=== PATIENT | female | born 1960 | race Caucasian/White ===

== ENCOUNTER 2018-12-29 07:00 | Emergency (ER) | payer OTHER, SELFPAY ==
[2018-12-29 07:10] VITALS: BP 141/77; PULSE 68; RESP 18; TEMP 36.6; O2SAT 100; BMI 22.8
--- NOTE | 2018-12-29 07:13 | DI.RAD.S_ITS ---
PROCEDURE: XR WRIST LT MIN 3V INDICATIONS: fall yesterday on [place], gen wrist pain with movement TECHNIQUE: 4 views of the wrist were acquired. COMPARISON: [facility], , WRIST MINIMUM 3 VIEWS LEFT, 05/03/2015, 11:32. FINDINGS: Bones: There is a corticated ossicle in the dorsal aspect of the distal left wrist, unchanged from 05/03/2015, most likely an accessory ossicle. No fractures or dislocations. No suspicious bony lesions. Scaphoid view: Scaphoid appears intact. Soft tissues: No suspicious soft tissue calcifications. IMPRESSION: No fracture or dislocation. Dictated by: Klever Gil M.D. on 12/29/2018 at 9:26 Approved by: Klever Gil M.D. on 12/29/2018 at 9:30
--- NOTE | 2018-12-29 07:13 | DI.RAD.S_ITS ---
PROCEDURE: XR WRIST RT MIN 3V INDICATIONS[place] wrist pain radial region TECHNIQUE: 4 views of the wrist were acquired. COMPARISON: none. FINDINGS: Bones: No fractures or dislocations. No suspicious bony lesions. Scaphoid view: Scaphoid is intact. Soft tissues: No suspicious soft tissue calcifications. IMPRESSION: No fracture or dislocation. Dictated by: Klever Gli M.D. on 12/29/2018 at 9:24 Approved by: Klever Gil M.D. on 12/29/2018 at 9:26
--- NOTE | 2018-12-29 07:13 | ED.UPPEXIN ---
HPI - Extremity Injury (Upper) General Chief Complaint: Extremity Injury, Upper Stated Complaint: fell at work and sprained both wrists Time Seen by Provider: 12/29/18 07:13 Source: patient Mode of arrival: ambulatory Limitations: no limitations History of Present Illness HPI narrative: This is a 58-year-old female comes to the emergency department with complaint of bilateral wrist pain patient states she was working on the [employer] when she was stepping off the lip and caught her foot. Patient states she fell forward and caught herself with both wrists. She has pain in both wrists. Little bit more on the right compared to the left she has pain with movement. No numbness, no tingling or weakness she denies any other injuries. She does not any cuts or abrasions. Past medical history is only significant for multiple sclerosis which she takes a beta globulin. She has had a tubal but no other surgeries. Dr. Amanda Campbell is her primary care Related Data Previous Rx's Medication Instructions Recorded ondansetron [Zofran ODT] 4 mg SUBLINGUAL Q6HP PRN #20 odt 10/22/17 oxycodone 5 mg PO Q3HP PRN #20 tab 10/22/17 Allergies Allergy/AdvReac Type Severity Reaction Status Date / Time morphine [MORPHINE] Allergy Mild VOMITING, Unverified 01/07/18 12:03 HIVES Review of Systems Review of Systems ROS Unobtainable: All systems reviewed & are unremarkable except as noted in HPI and below Constitutional Denies weakness Musculoskeletal Reports arthralgias (bilateral wrist), Reports joint swelling (very mild), Reports limited range of motion (partially decreased), Denies numbness, Reports stiffness and Denies tingling Integumentary/Breasts Denies unusual bruising and Denies wounds Neurologic Denies focal weakness, Denies numbness, Denies sensory deficit, Denies tingling and Denies weakness PFSH Medical History (Updated 12/29/18 @ 07:20 by Ameena Gale DO) Multiple sclerosis (Chronic) Surgical History (Updated 12/29/18 @ 07:17 by Ameena Gale DO) H/O tubal ligation (Chronic) Family History (Updated 11/21/14 @ 00:00 by Conversion Provider) Father Age: 79 Diabetes mellitus Sister Age: 49 Breast cancer Social History (Updated 12/29/18 @ 07:17 by Ameena Gale DO) occupational status: employed Previous occupational history: Works on [employer] Smoking Status: Never smoker Family History (Updated 11/21/14 @ 00:00 by Conversion Provider) Father Age: 79 Diabetes mellitus Sister Age: 49 Breast cancer Social History (Updated 12/29/18 @ 07:17 by Ameena Gale DO) occupational status: employed Previous occupational history: Works on [employer] Smoking Status: Never smoker Exam Narrative Exam Narrative: GENERAL: Alert and oriented x three, well-nourished, well-appearing female in no acute distress. HEENT: Head normocephalic, atraumatic, EOMI, pupils reactive, face symmetric, moist mucous membranes NECK: Supple, full range of motion CARDIOVASCULAR: Regular rate and rhythm without murmurs, rubs or gallops. RESPIRATORY: Breath sounds equal bilaterally, no wheezes rales or rhonchi. ABDOMEN: Soft, nontender. Normoactive bowel sounds all 4 quadrants. No guarding or rebound, rigidity, no mass EXTREMITIES: Normal range of motion except for mildly decreased at the wrist. Patient does still have full range of motion she has just a little bit more careful. In the right wrist patient has some tenderness over the distal radius and ulna. Some mild swelling. Patient does not have any bony tenderness to the hand or fingers. She has normal sensation throughout. Cap refill less than 2 seconds in all 5 fingers. 2+ radial pulse. In the left wrist patient has some mild generalized tenderness of the wrist but no acute bony tenderness. Patient has no tenderness of the hand or fingers. She has full range of motion, cap refills less than 2 seconds with 2+ radial pulse. 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 Full range of motion of her upper extremities. no abrasions or wounds noted. no clubbing or edema. Neurovascularly intact NEUROLOGICAL: Cranial nerves II through XII grossly intact. Moving all extremities SKIN: Warm, dry, no petechiae, no rashes or lesions. Initial Vital Signs Initial Vital Signs: Vital Signs Temperature 97.8 F 12/29/18 07:10 Pulse Rate 68 12/29/18 07:10 Respiratory Rate 18 12/29/18 07:10 Blood Pressure 141/77 H 12/29/18 07:10 Pulse Oximetry 100 12/29/18 07:10 Course Orders Ordered: ED Orders 12/29/18 07:13 XR wrist LT min 3V Stat XR wrist RT min 3V Stat Vital Signs - 8 hr 12/29/18 07:10 Temperature 97.8 F Pulse Rate 68 Respiratory Rate 18 Blood Pressure 141/77 H Pulse Oximetry 100 [facility] - Extremity Injury (Upper) Imaging Data Right wrist x-ray: Attestation: I personally reviewed and interpreted this imaging study as follows: My impression: no fracture or dislocation noted Left wrist x-ray: Attestation: I personally reviewed and interpreted this imaging study as follows: My impression: no fracture/dislocation noted. [facility] Narrative Medical decision making narrative: Followed up for no radial Arnoldo reports. Both were negative for fracture dislocation. Discharge Plan Departure Patient Disposition: Home Clinical Impression: Wrist sprain Qualifiers: Encounter type: initial encounter Laterality: unspecified laterality Qualified Code(s): S63.509A - Unspecified sprain of unspecified wrist, initial encounter Discharge Date/Time: 12/29/18 07:52 Interventions: ED Discharge Assessment Last Done: 12/29/18 07:52 Instructions: DI for Wrist Sprain Activity Restrictions/Additional Instructions: Follow-up with L&I physician in the next 7-10 days if your symptoms are not resolving. No fractures noted on x-ray but if you continue to pain you should have repeat imaging days. You may continue ibuprofen Tylenol as needed pain. You may use a Ramiro wrap or brace on her wrist for support. Splint Care: Keep splint clean and dry. Elevated affected body part to decrease swelling. OK to use ice pack on the affected body part. Use for 15-20 minutes each time, for 5-6x per day. If you develop worsening pain, numbness, tingling, discoloration of the affected body part either see your doctor for an urgent re-assessment, or return to the Emergency Department. Return to the Emergency Department for any new or worsening symptoms. Prescriptions: No Action ondansetron [Zofran ODT] 4 MG tablet,disintegrating 4 mg Sublingual Q6HP PRNQty: 20 RF: 0 oxycodone 5 MG tablet 5 mg PO Q3HP PRNQty: 20 RF: 0 Referrals: Jaimie Campbell MD [Primary Care Provider] - Stand Alone Forms: Work Release Note
--- NOTE | 2018-12-29 07:20 | ED_ITS ---
HPI - Extremity Injury (Upper) General Chief Complaint: Extremity Injury, Upper Stated Complaint: fell at work and sprained both wrists Time Seen by Provider: 12/29/18 07:13 Source: patient Mode of arrival: ambulatory Limitations: no limitations History of Present Illness HPI narrative: This is a 58-year-old female comes to the emergency department with complaint of bilateral wrist pain patient states she was working on the [employer] when she was stepping off the lip and caught her foot. Patient states she fell forward and caught herself with both wrists. She has pain in both wrists. Little bit more on the right compared to the left she has pain with movement. No numbness, no tingling or weakness she denies any other injuries. She does not any cuts or abrasions. Past medical history is only significant for multiple sclerosis which she takes a beta globulin. She has had a tubal but no other surgeries. Dr. Amanda Campbell is her primary care Related Data Previous Rx's Medication Instructions Recorded ondansetron [Zofran ODT] 4 mg SUBLINGUAL Q6HP PRN #20 odt 10/22/17 oxycodone 5 mg PO Q3HP PRN #20 tab 10/22/17 Allergies Allergy/AdvReac Type Severity Reaction Status Date / Time morphine [MORPHINE] Allergy Mild VOMITING, Unverified 01/07/18 12:03 HIVES Review of Systems Review of Systems ROS Unobtainable: All systems reviewed & are unremarkable except as noted in HPI and below Constitutional Denies weakness Musculoskeletal Reports arthralgias (bilateral wrist), Reports joint swelling (very mild), Reports limited range of motion (partially decreased), Denies numbness, Reports stiffness and Denies tingling Integumentary/Breasts Denies unusual bruising and Denies wounds Neurologic Denies focal weakness, Denies numbness, Denies sensory deficit, Denies tingling and Denies weakness PFSH Medical History (Updated 12/29/18 @ 07:20 by Ameena Gale DO) Multiple sclerosis (Chronic) Surgical History (Updated 12/29/18 @ 07:17 by Ameena Gale DO) H/O tubal ligation (Chronic) Family History (Updated 11/21/14 @ 00:00 by Conversion Provider) Father Age: 79 Diabetes mellitus Sister Age: 49 Breast cancer Social History (Updated 12/29/18 @ 07:17 by Ameena Gale DO) occupational status: employed Previous occupational history: Works on [employer] Smoking Status: Never smoker Family History (Updated 11/21/14 @ 00:00 by Conversion Provider) Father Age: 79 Diabetes mellitus Sister Age: 49 Breast cancer Social History (Updated 12/29/18 @ 07:17 by Ameena Gale DO) occupational status: employed Previous occupational history: Works on [employer] Smoking Status: Never smoker Exam Narrative Exam Narrative: GENERAL: Alert and oriented x three, well-nourished, well- appearing female in no acute distress. HEENT: Head normocephalic, atraumatic, EOMI, pupils reactive, face symmetric, moist mucous membranes NECK: Supple, full range of motion CARDIOVASCULAR: Regular rate and rhythm without murmurs, rubs or gallops. RESPIRATORY: Breath sounds equal bilaterally, no wheezes rales or rhonchi. ABDOMEN: Soft, nontender. Normoactive bowel sounds all 4 quadrants. No guarding or rebound, rigidity, no mass EXTREMITIES: Normal range of motion except for mildly decreased at the wrist. Patient does still have full range of motion she has just a little bit more careful. In the right wrist patient has some tenderness over the distal radius and ulna. Some mild swelling. Patient does not have any bony tenderness to the hand or fingers. She has normal sensation throughout. Cap refill less than 2 seconds in all 5 fingers. 2+ radial pulse. In the left wrist patient has some mild generalized tenderness of the wrist but no acute bony tenderness. Patient has no tenderness of the hand or fingers. She has full range of motion, cap refills less than 2 seconds with 2+ radial pulse. Patient has automation tender equal bilaterally. Full range of motion of her upper extremities. no abrasions or wounds noted. no clubbing or edema. Neurovascularly intact NEUROLOGICAL: Cranial nerves II through XII grossly intact. Moving all extremities SKIN: Warm, dry, no petechiae, no rashes or lesions. Initial Vital Signs Initial Vital Signs: Vital Signs Temperature 97.8 F 12/29/18 07:10 Pulse Rate 68 12/29/18 07:10 Respiratory Rate 18 12/29/18 07:10 Blood Pressure 141/77 H 12/29/18 07:10 Pulse Oximetry 100 12/29/18 07:10 Course Orders Ordered: ED Orders 12/29/18 07:13 XR wrist LT min 3V Stat XR wrist RT min 3V Stat Vital Signs - 8 hr 12/29/18 07:10 Temperature 97.8 F Pulse Rate 68 Respiratory Rate 18 Blood Pressure 141/77 H Pulse Oximetry 100 [facility] - Extremity Injury (Upper) Imaging Data Right wrist x-ray: Attestation: I personally reviewed and interpreted this imaging study as follows: My impression: no fracture or dislocation noted Left wrist x-ray: Attestation: I personally reviewed and interpreted this imaging study as f ollows: My impression: no fracture/dislocation noted. [facility] [place] Narrative Medical decision making narrative: Followed up for no radial Arnoldo reports. Both were negative for fracture dislocation. Discharge Plan Departure Patient Disposition: Home Clinical Impression: Wrist sprain Qualifiers: Encounter type: initial encounter Laterality: unspecified laterality Qualified Code(s): S63.509A - Unspecified sprain of unspecified wrist, initial encounter Discharge Date/Time: 12/29/18 07:52 Interventions: ED Discharge Assessment Last Done: 12/29/18 07:52 Instructions: DI for Wrist Sprain Activity Restrictions/Additional Instructions: Follow-up with L&I physician in the next 7-10 days if your symptoms are not resolving. No fractures noted on x-ray but if you continue to pain you should have repeat imaging days. You may continue ibuprofen Tylenol as needed pain. You may use a Ramiro wrap or brace on her wrist for support. Splint Care: Keep splint clean and dry. Elevated affected body part to decrease swelling. OK to use ice pack on the affected body part. Use for 15-20 minutes each time, for 5-6x per day. If you develop worsening pain, numbness, tingling, discoloration of the affected body part either see your doctor for an urgent re-assessment, or return to the Emergency Department. Return to the Emergency Department for any new or worsening symptoms. Prescriptions: No Action ondansetron [Zofran ODT] 4 MG tablet,disintegrating 4 mg Sublingual Q6HP PRNQty: 20 RF: 0 oxycodone 5 MG tablet 5 mg PO Q3HP PRNQty: 20 RF: 0 Referrals: Jaimie Campbell MD [Primary Care Provider] - Stand Alone Forms: Work Release Note
== END 2018-12-29 07:52 | disposition home or self-care (01) ==
PROVIDERS: Emergency Provider Emergency Medicine; PCP Family Medicine
DX: S63.501A Unspecified sprain of right wrist, initial encounter (principal); S63.502A Unspecified sprain of left wrist, initial encounter; W19.XXXA Unspecified fall, initial encounter; Y99.0 Civilian activity done for income or pay
CPT/HCPCS: 73110; 99282; 99283

== ENCOUNTER 2019-04-01 16:03 | Emergency (ER) | payer OTHER, SELFPAY ==
[2019-04-01 16:14] VITALS: BP 119/75; PULSE 75; RESP 22; TEMP 36.9; O2SAT 99; BMI 24.2
--- NOTE | 2019-04-01 16:19 | DI.RAD.S_ITS ---
PROCEDURE: XR TIBIA FUBULA RT 2V INDICATIONS: injury/swelling TECHNIQUE: 2 views of the tibia and fibula were acquired. COMPARISON: None. FINDINGS: Bones: No fractures or dislocations. No suspicious bony lesions. Soft tissues: No suspicious soft tissue calcifications or masses. Soft tissue swelling along anterior aspect of distal tibia shaft is seen. IMPRESSION: Mild anterior soft tissue swelling. No acute lower leg fracture or dislocation. Dictated by: Eber Moore M.D. on 04/01/2019 at 15:45 Approved by: Eber Moore M.D. on 04/01/2019 at 15:46
--- NOTE | 2019-04-01 16:31 | ED_ITS ---
HPI - Extremity Injury (Lower) <RAJINDER Maloney - Last Filed: 04/01/19 17:34> General Chief Complaint: Extremity Injury, Lower Stated Complaint: thinks she broke her right leg at work Time Seen by Provider: 04/01/19 16:14 Source: patient Mode of arrival: ambulatory Limitations: no limitations History of Present Illness HPI Narrative: 58-year-old female presents emergency department today after tripping over a trailer hitch while working on the [employer]. She states she hit her right leg against the trailer and fell on her left elbow. She had a small scrape on her left elbow but complains of aching 8/10 pain to the lower mac, is concern is broken. Pain is worse with ambulation and better with rest, pain is worse when she elevates her leg as well. Associated bruising and swelling, denies pain in her ankle, pain in her elbow, or pain in her knee. Denies syncope, chest pain, shortness of breath, dizziness, headache, head trauma, neck pain, back pain, vision changes, nausea, vomiting, or diarrhea. Related Data Previous Rx's Medication Instructions Recorded ondansetron [Zofran ODT] 4 mg SUBLINGUAL Q6HP PRN #20 odt 10/22/17 oxycodone 5 mg PO Q3HP PRN #20 tab 10/22/17 Allergies Allergy/AdvReac Type Severity Reaction Status Date / Time morphine [MORPHINE] Allergy Mild VOMITING, Unverified 01/07/18 12:03 HIVES Review of Systems <RAJINDER Maloney - Last Filed: 04/01/19 17:34> Review of Systems REVIEW OF SYSTEMS: GENERAL: Denies fever or chills. HENT: No head trauma, hearing loss or sore throat. EYES: No loss of vision, double vision, eye pain, or irritation. CARDIOVASCULAR: No chest pain or syncope. RESPIRATORY: No shortness of breath or cough. GASTROINTESTINAL: No nausea, vomiting, diarrhea, or constipation. GENITOURINARY: No flank pain or dysuria. MUSCULOSKELETAL: Complains of leg pain, see HPI. INTEGUMENTARY: Complains of ecchymosis, see HPI. NEURO: No numbness, tingling, memory loss, or confusion. PSYCH: No behavior or mood changes. PFSH <RAJINDER Maloney - Last Filed: 04/01/19 17:34> Medical History Multiple sclerosis (Chronic) Surgical History H/O tubal ligation (Chronic) Family History (Updated 11/21/14 @ 00:00 by Conversion Provider) Father Age: 79 Diabetes mellitus Sister Age: 49 Breast cancer Social History (Updated 12/29/18 @ 07:17 by Ameena Gale DO) occupational status: employed Previous occupational history: Works on [employer] Smoking Status: Never smoker Family History Father Age: 79 Diabetes mellitus Sister Age: 49 Breast cancer Social History occupational status: employed Previous occupational history: Works on [employer] Smoking Status: Never smoker Exam <RAJINDER Maloney - Last Filed: 04/01/19 17:34> Initial Vital Signs Initial Vital Signs: Vital Signs Temperature 98.5 F 04/01/19 16:14 Pulse Rate 75 04/01/19 16:14 Respiratory Rate 22 04/01/19 16:14 Blood Pressure 119/75 04/01/19 16:14 Pulse Oximetry 99 04/01/19 16:14 PHYSICAL EXAMINATION: GENERAL: Well groomed, alert, and cooperative. Answers questions promptly and appropriately. Vital signs noted. HENT: Normocephalic, atraumatic. EYES: Conjunctiva pink, sclera white, no periorbital swelling. CARDIOVASCULAR: S1 and S2 sounds normal. Regular rate and rhythm, no murmurs, clicks, or bruits. No pedal edema. RESPIRATORY: Normal respiratory rate, trachea midline, airway patent. No stridor, nasal flaring or accessory muscle use. Lungs are clear in all bullock without wheeze, rhonchi, or crackles. MUSCULOSKELETAL: Significant ecchymosis and slight swelling to distal portion of right tibia, tenderness over distal portion of tibia with palpation. Patient is nontender with palpation of her right knee, right ankle, or right foot. Patient has full range of motion knees and ankles bilaterally. Patient is able to ambulate without significant limp. Patient's right elbow is nontender with palpation, she exhibits full range of motion. EXTREMITIES: CMS intact. Pedal pulses intact and equal bilaterally. SKIN: Warm, dry, soft, appropriate color for ethnicity. Abrasion noted on right elbow about 4 cm x 4 cm, no exudate. NEURO: Alert and Oriented X 3. Good coordination. No ataxia, or sensory deficits, or cognitive issues. PSYCH: Appropriate affect and mood. <Halle Carrillo DO - Last Filed: 04/02/19 07:23> Initial Vital Signs Initial Vital Signs: Vital Signs Temperature 98.5 F 04/01/19 16:14 Pulse Rate 75 04/01/19 16:14 Respiratory Rate 22 04/01/19 16:14 Blood Pressure 119/75 04/01/19 16:14 Pulse Oximetry 99 04/01/19 16:14 Course <RAJINDER Maloney - Last Filed: 04/01/19 17:34> Orders Ordered: ED Orders 04/01/19 16:19 XR tibia fibula RT 2V Stat Consultations Consultation #1: Patient staffed with Dr. Carrillo. Vital Signs - 8 hr 04/01/19 16:14 Temperature 98.5 F Pulse Rate 75 Respiratory Rate 22 Blood Pressure 119/75 Pulse Oximetry 99 <Halle Carrillo DO - Last Filed: 04/02/19 07:23> Orders Ordered: ED Orders 04/01/19 16:19 XR tibia fibula RT 2V Stat Vital Signs - 8 hr 04/01/19 16:14 Temperature 98.5 F Pulse Rate 75 Respiratory Rate 22 Blood Pressure 119/75 Pulse Oximetry 99 [facility] - Extremity Injury (Lower) <RAJINDER Maloney - Last Filed: 04/01/19 17:34> Medical Records Attestation: I reviewed the patient's medical records. Lab Data Attestation: I reviewed the patient's lab results. Imaging Data Right Tib/Fib: Radiologist's impression: [address] [address] XRay Report Signed Patient: Marva Pandey EMR#: [id number] : 2Acct:[id number] Age/Sex: 58 / FDate of Service: 04/01/19 Loc: ED Accession Number: [id number] Procedure: XR tibia fibula RT 2V Ordering Provider: Yvonne Haskins PROCEDURE: XR TIBIA FUBULA RT 2V INDICATIONS: injury/swelling TECHNIQUE: 2 views of the tibia and fibula were acquired. COMPARISON: None. FINDINGS: Bones: No fractures or dislocations. No suspicious bony lesions. Soft tissues: No suspicious soft tissue calcifications or masses. Soft tissue swelling along anterior aspect of distal tibia shaft is seen. IMPRESSION: Mild anterior soft tissue swelling. No acute lower leg fracture or dislocation. Dictated by: Eber Moore M.D. on 04/01/2019 at 15:45 Approved by: Eber Moore M.D. on 04/01/2019 at 15:46 [facility] Narrative Medical decision making narrative: Less likely a fracture due to negative x-ray and that patient was able to bear weight on leg. Most likely her symptoms are caused by a contusion from tripping over a trailer. However I advised patient to follow up with a primary care provider for further testing if her symptoms continue. Discharge Plan Departure Patient Disposition: Home Clinical Impression: Contusion of right lower leg Qualifiers: Encounter type: initial encounter Qualified Code(s): S80.11XA - Contusion of right lower leg, initial encounter Discharge Date/Time: 04/01/19 17:08 Interventions: ED Discharge Assessment Last Done: 04/01/19 17:07 Instructions: DI for Leg Pain Activity Restrictions/Additional Instructions: Thank you for entrusting me with your care today. As discussed, her x-rays are negative for fractures. Please follow up with her primary care provider in the next week or so if your symptoms persist. He may use ibuprofen for pain and swelling, elevate the leg as much as possible, use an Ramiro bandage to reduce swelling. Return to the emergency department if he develops severe chest pain, shortness of breath, syncope, or increased pain or swelling in her calf. Prescriptions: No Action ondansetron [Zofran ODT] 4 MG tablet,disintegrating 4 mg Sublingual Q6HP PRNQty: 20 RF: 0 oxycodone 5 MG tablet 5 mg PO Q3HP PRNQty: 20 RF: 0 Referrals: Jaimie Campbell MD [Primary Care Provider] - <Halle Carrillo DO - Last Filed: 04/02/19 07:23> Cosign ED Attending Orinature Attestation: I was immediately available in the department for consultation. Documentation has been reviewed. I agree with assessment and plan.
== END 2019-04-01 17:08 | disposition home or self-care (01) ==
PROVIDERS: Emergency Provider Nurse Practitioner; PCP Family Medicine
DX: S80.11XA Contusion of right lower leg, initial encounter (principal); W01.0XXA Fall on same level from slipping, tripping and stumbling without subsequent striking against object, initial encounter; Y99.0 Civilian activity done for income or pay
CPT/HCPCS: 73590; 99282; 99283

== ENCOUNTER → 2019-04-06 15:38 | Outpatient (CLI) | payer OTHER, SELFPAY ==
--- NOTE | 2019-04-06 | DI.MRI.S_ITS ---
PROCEDURE: MR HEAD/BRAIN WO CON INDICATIONS: MULTIPLE SCLEROSIS TECHNIQUE: Noncontrast axial T1 spin echo, axial T2 fast spin echo, sagittal and axial FLAIR, coronal T2 fast spin echo, axial gradient echo, axial diffusion and ADC through the brain. COMPARISON: [facility], CT, HEAD WITHOUT CONTRAST, 08/08/2014, 9:58. FINDINGS: Image quality: Excellent. CSF Spaces: Basal cisterns are patent. No extra-axial fluid collections. Ventricles are normal in size and shape. Brain: T2 hyperintense lesions are seen within the periventricular and deep white matter. There is involvement of the corpus callosum. A few of the periventricular lesions demonstrate a perpendicular orientation to the lateral ventricles. No definite involvement can be seen of the brainstem or the posterior fossa. No intracranial masses or hemorrhage. Alejo/white matter interface is normal. Brainstem appears normal. Diffusion-weighted images demonstrate no acute ischemic insult. No chronic ischemic insults. Normal intravascular flow voids are present. Skull and face: Calvarium has normal marrow signal. Orbits appear normal. Note is made of bilateral lens replacements. Sinuses: Sinuses and mastoids are clear. IMPRESSION: Abnormal T2 hyperintense white matter lesions are seen, which are consistent with the given clinical history of multiple sclerosis. However, in a patient of this age, differential diagnosis also includes chronic small vessel ischemic change. Dictated by: Gagan Ocampo M.D. on 04/06/2019 at 16:06 Approved by: Gagan Ocampo M.D. on 04/06/2019 at 16:08
== END ==
PROVIDERS: PCP Family Medicine; Visit Provider Nurse Practitioner Family
DX: G35 Multiple sclerosis (principal)
CPT/HCPCS: 70551

== ENCOUNTER → 2019-06-07 13:26 | Outpatient (CLI) | payer OTHER, SELFPAY ==
--- NOTE | 2019-06-07 | DI.RAD.S_ITS ---
PROCEDURE: XR CALCANEOUS LT MIN 2V INDICATIONS: R/O FX TECHNIQUE: Two views of the calcaneus were acquired. COMPARISON: [facility], JAILEEN, XR FOOT LT MIN 3V, 06/07/2019, 13:31. FINDINGS: Bones: No fractures or dislocations. No suspicious bony lesions. Calcaneal spur is present. Soft tissues: No suspicious calcifications. Achilles tendon appears normal. IMPRESSION: No visualized acute fracture or dislocation. However, if clinical concern and/or pain persist, short interval imaging followup in 7-10 days is recommended, as occult injury cannot be definitively excluded. Dictated by: Gina Francois M.D. on 06/07/2019 at 16:27 Approved by: Gina Francois M.D. on 06/07/2019 at 16:27
--- NOTE | 2019-06-07 | DI.RAD.S_ITS ---
PROCEDURE: XR FOOT LT MIN 3V INDICATIONS: POSSIBLE STRESS FRACTURE TECHNIQUE: 3 views of the foot were acquired. COMPARISON: [facility], CR, XR CALCANEOUS LT MIN 2V, 06/07/2019, 13:52. FINDINGS: Bones: No fractures or dislocations. No suspicious bony lesions. Calcaneal spur is present. Mild hallux valgus deformity is present. Soft tissues: No tibiotalar joint effusion. Achilles tendon appears normal. IMPRESSION: No visualized acute fracture or dislocation. However, if clinical concern and/or pain persist, short interval imaging followup in 7-10 days is recommended, as occult injury cannot be definitively excluded. If concern for stress fracture persists, MRI is recommended. Dictated by: Gina Francois M.D. on 06/07/2019 at 16:24 Approved by: Gina Francois M.D. on 06/07/2019 at 16:25
== END ==
PROVIDERS: PCP Family Medicine; Visit Provider Chiropractor
DX: M25.572 Pain in left ankle and joints of left foot (principal); M77.32 Calcaneal spur, left foot
CPT/HCPCS: 73630; 73650

== ENCOUNTER → 2019-06-28 06:43 | Outpatient (CLI) | payer OTHER, SELFPAY ==
--- NOTE | 2019-06-28 | DI.MRI.S_ITS ---
PROCEDURE: MRFOOT LT WO CON INDICATIONS: LEFT FOOT PAIN TECHNIQUE: Noncontrast sagittal T1 spin echo and T2 fast spin echo with fat saturation, long-axis T1 spin echo and T2 fast spin echo with fat saturation, short-axis T1 spin echo and T2 fast spin echo with fat saturation through the forefoot. COMPARISON: None. FINDINGS: Image quality: Failure of fat suppression fracture the forefoot, in the region of the fifth metatarsal head Bones and joints: No bone marrow contusions or metatarsal stress fractures. The sesamoid bones appear in expected positions, without internal edema. No metatarsophalangeal joint degeneration. No intraosseous lesions. Soft tissues: The visualized plantar foot muscles demonstrate normal signal and bulk. Visualized flexor and extensor tendons appear intact, without tenosynovitis. The distal insertions of the peroneus brevis and longus tendons appear intact. The principal Lisfranc ligament appears intact. Large multiloculated ganglion/synovial cyst along the lateral aspect of the talonavicular joint measuring approximately 1.9 x 1.9 cm on sagittal image 19 series 4 Minimal posterior tibialis and flexor digitorum longus tenosynovitis. Medial band plantar fasciitis at the calcaneal attachment is seen IMPRESSION: Large synovial versus ganglion cyst at the lateral aspect of the talonavicular joint. Medial band plantar fasciitis. Minimal posterior tibialis and flexor digitorum longus tenosynovitis. Dictated by: Gold Hardy M.D. on 06/28/2019 at 10:22 Approved by: Gold Hardy M.D. on 06/28/2019 at 10:28
== END ==
PROVIDERS: Family Provider Orthopaedic Surgery Foot and Ankle Surgery; PCP Family Medicine; Visit Provider Family Medicine
DX: M79.672 Pain in left foot (principal); M72.2 Plantar fascial fibromatosis; M25.872 Other specified joint disorders, left ankle and foot
CPT/HCPCS: 73718

== ENCOUNTER → 2019-07-15 16:39 | Outpatient (CLI) | payer OTHER, SELFPAY ==
--- NOTE | 2019-07-15 | DI.MG.S_ITS ---
BILATERAL DIGITAL SCREENING MAMMOGRAM 3D/2D WITH CAD: 07/15/2019 CLINICAL: Routine screening. Family history of breast cancer. Comparison is made to exams dated: 06/10/2017 mammogram, 03/13/2016 mammogram, and 02/23/2014 mammogram - [facility]. The tissue of both breasts is heterogeneously dense. This may lower the sensitivity of mammography. Current study was also evaluated with a Computer Aided Detection (CAD) system. There is a biopsy clip in the left breast. No significant masses, calcifications, or other findings are seen in either breast. There has been no significant interval change. IMPRESSION: NEGATIVE There is no mammographic evidence of malignancy. A 1 year screening mammogram is recommended. This exam was interpreted at Station ID: [id number]. NOTE: For mammograms, a report in lay terms will be sent to the patient. Approximately 15% of breast malignancies will not be visualized mammographically. In the management of a palpable breast mass, a negative mammogram must not discourage biopsy of a clinically suspicious lesion. Electronically Signed By: Yoshi [email or web address]:07/16/2019 08:10:44 letter sent: Normal Exam ACR BI-RADS Category 1: Negative [id number]
== END ==
PROVIDERS: Family Provider Orthopaedic Surgery Foot and Ankle Surgery; PCP Family Medicine; Visit Provider Family Medicine
DX: Z12.31 Encounter for screening mammogram for malignant neoplasm of breast (principal); Z80.3 Family history of malignant neoplasm of breast
CPT/HCPCS: 77063; 77067